=== PATIENT | female | born 1965 | race Caucasian/White ===

== ENCOUNTER 2018-05-03 14:34 | Emergency (ER) | payer OTHER ==
[~2018-05-03] VITALS: Ht 162.6 cm; Wt 47.6 kg
[2018-05-03 15:42] LABS: EOSINOPHILS # (AUTO) 0.6 K/uL (0.0-0.7); HEMOGLOBIN 15.4 g/dL (10.9-14.3); MEAN CORPUSCULAR HEMOGLOBIN 30.5 uug (24.7-32.8); MONOCYTES # (AUTO) 0.5 K/uL (2.0-10.0); RED BLOOD CELL COUNT(AUTO) 5.07 MIL/uL (3.63-4.92); WHITE BLOOD COUNT (AUTO) 7.4 K/uL (3.8-11.8)
[2018-05-03 15:47] LABS: BASOPHILS # (AUTO) 0.1 K/uL (0.0-8.0); EOSINOPHILS % (AUTO) 8.5 % (0.0-7.0); HEMATOCRIT 45.2 % (31.2-41.9); LYMPHOCYTES # (AUTO) 3.1 K/uL (20.0-40.0); LYMPHOCYTES % (AUTO) 42.1 % (20.5-51.5); MEAN CORPUSCULAR HGB CONC 34 g/dL (32.3-35.6); MONOCYTES % (AUTO) 6.1 % (0.0-11.0); NEUTROPHILS # (AUTO) 3.1 K/uL (1.8-8.9); NEUTROPHILS % (AUTO) 42.3 % (38.5-71.5); PLATELET COUNT (AUTO) 299 K/uL (179-408)
[2018-05-03 15:51] LABS: CREATININE 0.8 mg/dL (0.6-1.3); POTASSIUM 3.6 mmol/L (3.5-5.1)
[2018-05-03 16:05] LABS: THYROID STIMULATING HORMONE 2.633 mIU/mL (0.358-3.740)
[2018-05-03 16:07] LABS: BILIRUBIN,DIRECT 0.1 mg/dL (0.0-0.2); BILIRUBIN,TOTAL 0.4 mg/dL (0.2-1.0)
--- NOTE | 2018-05-03 17:20 | NUR ---
mse completed, pt d/c'd home, aci/copy of xray/lab results given.Patient discharged to home in stable conditon. Written and verbal after care instructions given. Patient verbalizes understanding of instructions.
[2018-05-03 17:23] VITALS: BP 111/66
== END 2018-05-03 17:24 | disposition home or self-care (01) ==
LOC: ER 14:34
DX: Z00.00 Encounter for general adult medical examination without abnormal findings (principal)
CPT/HCPCS: 36415; 70360; 80048; 80076; 84443; 85025; 99285; A4663